=== PATIENT | female | born 1985 | race Caucasian/White ===

== ENCOUNTER 2019-07-21 19:25 | Emergency (ER) | payer OTHER, MEDICAID ==
[~2019-07-21] VITALS: Ht 149.9 cm; Wt 43.9 kg
[~2019-07-21 19:25] MED LIST: NONE PER PT
[2019-07-21 19:26] VITALS: BP 104/62
--- NOTE | 2019-07-21 19:36 | NUR ---
LEFT SHOULDER PAIN X 1 WEEK. WORKS [employer], LIFTS HEAVY THINGS. PAIN GOES UP L NECK FROM SHOULDER BLADE. PA AT [facility]. PLAN FOR RAD AND PAIN MEDS. NOT DRIVING. DENIES PARASTHESIAS.
[2019-07-21] MEDS ORDERED: METHOCARBAMOL 750 MG TABLET ONE (19:38)
--- NOTE | 2019-07-21 19:49 | NUR ---
meds per mar, to and from rad.
--- NOTE | 2019-07-21 19:55 | NUR ---
to and from rad, awaiting results.
[2019-07-21] MEDS ORDERED: METHOCARBAMOL 750 MG TABLET PO ONE (20:00)
[2019-07-21] MEDS ORDERED: KETOROLAC 30 MG/1 ML ONE (20:46)
[2019-07-21] MEDS ORDERED: KETOROLAC 30 MG/1 ML IM ONE (21:00)
== END 2019-07-21 21:17 | disposition home or self-care (01) ==
LOC: ED 20:45
DX: M25.512 Pain in left shoulder (principal); R25.2 Cramp and spasm
CPT/HCPCS: 73030; 96372; 99283; J1885

== ENCOUNTER 2019-07-31 16:11 | Emergency (ER) | payer BC, MEDICAID ==
[~2019-07-31] VITALS: Ht 149.9 cm; Wt 43.5 kg
[2019-07-31] MEDS ORDERED: ACETAMINOPHEN 500 MG TABLET PO ONE (16:30)
[2019-07-31 17:08] LABS: MEAN CORPUSCULAR HEMOGLOBIN 30.5 pg (27.0-34.8); MEAN CORPUSCULAR HGB CONC 33.5 g/dL (32.4-35.8); MEAN CORPUSCULAR VOLUME 90.9 fL (80-100); MEAN PLATELET VOLUME 9.4 fL (7.4-10.4); PLATELET COUNT 183 x10^3/uL (130-400); RED CELL DISTRIBUTION WIDTH 12.3 % (9.6-15.2)
[2019-07-31 17:17] LABS: ALANINE AMINOTRANSFERASE 24 U/L (12-78); ALBUMIN 3.5 g/dL (3.4-5.0); ANION GAP 6 mmol/L (5-15); CALCIUM 8.6 mg/dL (8.5-10.1); CHLORIDE 105 mmol/L (98-107); CREATININE 0.77 mg/dL (0.55-1.02)
[2019-07-31 17:21] LABS: ALKALINE PHOSPHATASE 72 U/L (45-117); BILIRUBIN,TOTAL 0.5 mg/dL (0.2-1.0); TOTAL PROTEIN 7.5 g/dL (6.4-8.2)
[2019-07-31 18:08] LABS: BASOPHILS # (AUTO) 0.13 x10^3/uL (0-0.1); BASOPHILS % (AUTO) 1 % (0-1); EOSINOPHILS # (AUTO) 0.08 x10^3/uL (0-0.4); EOSINOPHILS % (AUTO) 1 % (1-7); LYMPHOCYTES # (AUTO) 1.31 x10^3/uL (1-3.4); LYMPHOCYTES % (AUTO) 10 % (22-44); MONOCYTES # (AUTO) 0.98 x10^3/uL (0.2-0.8); MONOCYTES % (AUTO) 7 % (2-9); NEUTROPHILS # (AUTO) 10.96 x10^3/uL (1.8-6.8); NEUTROPHILS % (AUTO) 81 % (42-75)
[2019-07-31 18:09] LABS: MD SCAN
[2019-07-31] MEDS ORDERED: LIDOCAINE-MPF 1%, 5ML INFIL ONE (19:00)
[2019-07-31] MEDS ORDERED: HYDROmorphone 2 MG/ML, 1ML IM ONE (19:00)
[2019-07-31 19:05] VITALS: BP 118/74
[2019-07-31] MEDS ORDERED: IBUPROFEN 200 MG TABLET PO ONE (20:30)
[2019-07-31] MEDS ORDERED: IBUPROFEN 600 MG TABLET ONE (20:31)
== END 2019-07-31 20:44 | disposition home or self-care (01) ==
LOC: ED 19:12
DX: N75.1 Abscess of Bartholin's gland (principal)
CPT/HCPCS: 36415; 80053; 84703; 85025; 86705; 86706; 86803; 87340; 87806; 96372; 99283; J1170; G0475